=== PATIENT | male | born 1970 | race Two or more races ===

== ENCOUNTER 2024-09-29 08:59 | Emergency (ER) | payer OTHER ==
[2024-09-29] MEDS ORDERED: FLUORESCEIN NA 1 EA STRIP ONE (09:34)
[2024-09-29] MEDS ORDERED: TETRACAINE 0.5% OPHTH SOLN 2 ML BOTTLE ONE (09:34)
[2024-09-29] MEDS: FLUORESCEIN NA 1 EA STRIP OS ONE (09:35)
[2024-09-29] MEDS: TETRACAINE 0.5% HCL 0.6ML DROPPER.BOTTLE OS ONE (09:35)
[2024-09-29 09:59] VITALS: TEMP 98.2; BMI 32.0
[2024-09-29 11:04] VITALS: BP 130/78; PULSE 60; RESP 19
== END 2024-09-29 11:04 | disposition short-term general hospital (02) ==
LOC: JER 08:59
DX: H54.7 Unspecified visual loss (principal)
CPT/HCPCS: 99285-25